=== PATIENT | male | born 1980 | race Caucasian/White ===

== ENCOUNTER 2021-12-08 02:46 | Emergency (ER) | payer OTHER ==
[2021-12-08 03:49] LABS: HEMOGLOBIN 14.8 gm/dl (14.0-17.5); RED BLOOD COUNT 5.06 M/UL (4.20-5.50); WHITE BLOOD COUNT 12.5 K/UL (4.5-11.0)
[2021-12-08 04:18] LABS: BUN/CREATININE RATIO 12 (0-10)
== END 2021-12-08 06:18 ==
LOC: ER1 02:46
PROVIDERS: Family Medicine
DX: I63.9 Cerebral infarction, unspecified (principal); F15.10 Other stimulant abuse, uncomplicated; F13.10 Sedative, hypnotic or anxiolytic abuse, uncomplicated; F12.10 Cannabis abuse, uncomplicated; F19.10 Other psychoactive substance abuse, uncomplicated; R69 Illness, unspecified
CPT/HCPCS: 80053; 80307; 81001; 82550; 82553; 83874; 84484; 85025; 99283; G0480

== ENCOUNTER 2021-12-12 06:12 | Inpatient (IN) | payer OTHER ==
[~2021-12-12] VITALS: Ht 167.6 cm; Wt 77.1 kg
[2021-12-12 06:38] LABS: HEMOGLOBIN 14.7 gm/dl (14.0-17.5); RED BLOOD COUNT 5.01 M/UL (4.20-5.50)
[2021-12-12 08:55] LABS: BUN/CREATININE RATIO 10 (0-10)
[2021-12-12] MEDS ORDERED: PROAIR HFA8.5 GM INH (13:05)
[2021-12-12] MEDS ORDERED: ZESTORETIC 20-1 EACH PO (13:06)
[2021-12-12] MEDS ORDERED: GABAPENTIN800 MG PO (13:06)
[2021-12-12] MEDS ORDERED: HYDROCODON-ACE1 EAC6 PO (13:06)
[2021-12-12] MEDS ORDERED: OMEPRAZOLE40 MG PO (13:07)
[2021-12-12] MEDS ORDERED: MELATONIN5 M2 PO (13:07)
[2021-12-12] MEDS ORDERED: KENALOG CREAM 080 GM TOP (13:07)
[2021-12-13 06:12] LABS: RED BLOOD COUNT 4.12 M/UL (4.20-5.50); WHITE BLOOD COUNT 15.6 K/UL (4.5-11.0)
[2021-12-13 06:13] LABS: HEMOGLOBIN 11.9 gm/dl (14.0-17.5)
[2021-12-13 06:24] LABS: BUN/CREATININE RATIO 11 (0-10)
[2021-12-13 14:27] LABS: ACINETOBACTER BAUMANNII Not Detected (Negative); ENTEROCOCCUS Not Detected (Negative); ESCHERICHIA COLI Not Detected (Negative); HAEMOPHILUS INFLUENZAE Not Detected (Negative); KLEBSIELLA OXYTOCA Not Detected (Negative); KLEBSIELLA PNEUMONIAE Not Detected (Negative); KPC-CARBAPENEM-RESISTANCE GENE Not Detected (Negative); PROTEUS Not Detected (Negative); SERRATIA MARCESANS Not Detected (Negative); STAPHYLOCOCCUS AUREUS Not Detected (Negative); STREP AGALACTIAE (GROUP B) Not Detected (Negative); STREP PYOGENES (GROUP A) Not Detected (Negative); STREPTOCOCCUS Not Detected (Negative); mecA (METHICILLIN RESIST GENE Not Detected (Negative); vanA/B (VANCOMYCIN RESIST GENE Not Detected (Negative)
[2021-12-13 14:28] LABS: CANDIDA ALBICANS Not Detected (Negative); CANDIDA KRUSEI Not Detected (Negative); CANDIDA TROPICALIS Not Detected (Negative); PSEUDOMONAS AERUGINOSA Not Detected (Negative)
[2021-12-13 17:20] LABS: STAPHYLOCOCCUS DETECTED (Negative)
[2021-12-14 04:27] LABS: HEMOGLOBIN 12.1 gm/dl (14.0-17.5); RED BLOOD COUNT 4.29 M/UL (4.20-5.50)
[2021-12-14 04:56] LABS: BUN/CREATININE RATIO 11 (0-10)
[2021-12-15 06:00] LABS: HEMOGLOBIN 12.8 gm/dl (14.0-17.5); RED BLOOD COUNT 4.42 M/UL (4.20-5.50); WHITE BLOOD COUNT 9.3 K/UL (4.5-11.0)
[2021-12-15 06:33] LABS: BUN/CREATININE RATIO 10 (0-10)
== END 2021-12-16 00:40 | disposition short-term general hospital (02) | DRG 871 ==
LOC: ER1 06:12 → CDU 09:12 → PROG CARE 09:12
PROVIDERS: Emergency Medicine; Physician Assistant; ADMIT Internal Medicine
PROC: 3E03329 Introduction of Other Anti-infective into Peripheral Vein, Percutaneous Approach (ICD-10-PCS; principal; 2021-12-12)
PROC: B24BZZZ Ultrasonography of Heart with Aorta (ICD-10-PCS; 2021-12-14)
DX: A41.1 Sepsis due to other specified staphylococcus (principal); G82.50 Quadriplegia, unspecified; N30.00 Acute cystitis without hematuria; I42.8 Other cardiomyopathies; M62.82 Rhabdomyolysis; I69.351 Hemiplegia and hemiparesis following cerebral infarction affecting right dominant side; G11.4 Hereditary spastic paraplegia; J01.00 Acute maxillary sinusitis, unspecified; M48.02 Spinal stenosis, cervical region; Z20.822 Contact with and (suspected) exposure to COVID-19; I51.3 Intracardiac thrombosis, not elsewhere classified; R29.6 Repeated falls; G89.29 Other chronic pain; F17.200 Nicotine dependence, unspecified, uncomplicated; E83.42 Hypomagnesemia; I10 Essential (primary) hypertension; R33.8 Other retention of urine; F19.10 Other psychoactive substance abuse, uncomplicated; Z88.5 Allergy status to narcotic agent; Z83.3 Family history of diabetes mellitus; Z98.890 Other specified postprocedural states; Z79.899 Other long term (current) drug therapy; Z79.82 Long term (current) use of aspirin
CPT/HCPCS: ECHO; 0240U; 36415; 70450; 71045; 72125; 72128; 72129; 72131; 72132; 72141; 72146; 80048; 80053; 80202; 80307; 81001; 82533; 82550; 82553; 83036; 83605; 83735; 84100; 84439; 84443; 84484; 85025; 85652; 85730; 86140; 87040; 87077; 87086; 87150; 87186; 93005; 93306; 96374; 96375; 97110-GP-CQ; 97161; 97165; 97530; 97530-GP-CQ; 97535; 99285; J0696; J1644; J1885; J2185; J3360; J3370; J3475; J7030; J7070; Q9967

== ENCOUNTER 2022-06-03 16:00 | Emergency (ER) | payer OTHER ==
[~2022-06-03 16:00] MED LIST: GABAPENTIN800 MG PO; HYDROCODON-ACE1 EAC6 PO; KENALOG CREAM 080 GM TOP; MELATONIN5 M2 PO; OMEPRAZOLE40 MG PO; PROAIR HFA8.5 GM INH; ZESTORETIC 20-1 EACH PO
[2022-06-03 18:22] LABS: HEMOGLOBIN 16.1 gm/dl (14.0-17.5); RED BLOOD COUNT 5.48 M/UL (4.20-5.50); WHITE BLOOD COUNT 9.9 K/UL (4.5-11.0)
[2022-06-03 19:08] LABS: BUN/CREATININE RATIO 12 (0-10)
== END 2022-06-03 18:55 | disposition left against medical advice (07) ==
LOC: ER1 16:00
PROVIDERS: Nurse Practitioner
DX: M54.9 Dorsalgia, unspecified (principal); M54.2 Cervicalgia; M54.50 Low back pain, unspecified; I11.9 Hypertensive heart disease without heart failure; F17.210 Nicotine dependence, cigarettes, uncomplicated; Z88.5 Allergy status to narcotic agent
CPT/HCPCS: 80053; 81001; 85025; 85652; 86140; 99283